=== PATIENT | male | born 1965 | race African-American/Black ===

== ENCOUNTER 2017-11-15 13:02 | Emergency (ER) | payer SELFPAY | END 2017-11-15 14:53 | disposition left against medical advice (07) | LOC: ER 14:51 | DX: R51 Headache (principal); Z53.21 Procedure and treatment not carried out due to patient leaving prior to being seen by health care provider ==

== ENCOUNTER 2017-11-16 08:48 | Emergency (ER) | payer SELFPAY ==
[~2017-11-16] VITALS: Ht 190.5 cm; Wt 106.0 kg
[2017-11-16 08:57] VITALS: BP 142/92
[2017-11-16] MEDS ORDERED: MORPHINE SULFATE 10 MG/ML CPJ IM ONE (11:00)
[2017-11-16] MEDS ORDERED: ONDANSETRON 4MG ODT PO ONE (11:00)
== END 2017-11-16 11:40 | disposition left against medical advice (07) ==
LOC: ER 09:43
DX: G43.909 Migraine, unspecified, not intractable, without status migrainosus (principal)
CPT/HCPCS: 96372; 99283; J2270; J7030; Q0162; 99282